=== PATIENT | male | born 1995 | race Native Hawaiian/Other Pacific Islander ===

== ENCOUNTER → 2020-09-08 16:53 | Outpatient (CLI) | payer OTHER, SELFPAY ==
--- NOTE | 2020-09-08 | DI.MRI.S_ITS ---
PROCEDURE: MR ANKLE LT WO CON INDICATIONS: pain in left ankle and joints of left foot TECHNIQUE: Noncontrast sagittal T1 spin echo and T2 fast spin echo with fat saturation, axial proton density fast spin echo and T2 fast spin echo with fat saturation, coronal T1 spin echo and T2 fast spin echo with fat saturation through the ankle/hindfoot. COMPARISON: None. FINDINGS: Image quality: Excellent. Bones and joints: Os navicularis is seen with pseudoarthrosis noted between anterior aspect of os navicularis and posterior medial portion of navicular bone. Mild edema within os navicularis is seen. No other area of abnormal marrow signal. No fracture or dislocation. No hindfoot coalitions. No osteochondral injuries of the talar dome. No pathologic joint effusions. Medial structures: The posterior tibialis appears thickened with small amount of fluid distending tendon sheath at the level of talonavicular joint with slightly attenuated appearance of the posterior tibialis tendon at the level of os navicularis. The flexor digitorum longus, and flexor hallucis longus tendons are intact. The posterior tibial neurovascular bundle appears normal within the tarsal tunnel, without extrinsic mass effect. The deep layer (anterior and posterior tibiotalar ligaments) and superficial layer (tibionavicular, tibiospring, and tibiocalcaneal ligaments) of the deltoid ligament appear normal. The spring ligament components (superomedial calcaneonavicular, medioplantar oblique calcaneonavicular, and inferoplantar longitudinal ligaments) are intact. Lateral structures: The anterior talofibular, calcaneofibular, and posterior talofibular ligaments appear intact. More superiorly, the anterior and posterior tibiofibular ligaments appear intact, as is the intermalleolar ligament. The tibiofibular syndesmosis is normal in width at 2 mm or less. The peroneus longus and brevis tendons demonstrate normal location and morphology. Adjacent bony peroneal tubercle and retrotrochlear prominence are normal in size. The sinus tarsi demonstrates normal fatty signal, without edema, fibrosis, or cyst formation. Visualized sinus tarsi components (cervical ligament, interosseous talocalcaneal ligament, roots of the inferior extensor retinaculum) appear normal. The calcaneonavicular and calcaneocuboid components of the bifurcate ligament appear intact. The dorsal calcaneocuboid ligament appears intact. Anterior structures: The tibialis anterior, extensor hallucis longus, and extensor digitorum longus tendons appear intact. The dorsal talonavicular ligament appears intact. Posterior and plantar structures: Achilles tendon is intact. Medial and lateral bands of the plantar fascia are of normal thickness. No abductor digiti quinti muscle atrophy to suggest Waters neuropathy. IMPRESSION: 1. Presence of os navicularis with pseudoarthrosis involving its articulation with medial navicular bone. No fracture or dislocation. No other area of abnormal marrow signal. 2. Low-grade tenosynovitis involving posterior tibialis tendon at the level of talonavicular joint. Suggestion of low-grade partial-thickness tear involving posterior tibialis tendon adjacent to the os navicularis. No full-thickness tendon rupture. 3. Rest of the ankle tendons and ligaments are grossly intact. Dictated by: Florentino Mcgee M.D. on 09/09/2020 at 8:40 Approved by: Florentino Mcgee M.D. on 09/09/2020 at 8:44
== END ==
PROVIDERS: Referring Provider Podiatrist; Visit Provider Podiatrist
DX: S93.492A Sprain of other ligament of left ankle, initial encounter (principal); M65.872 Other synovitis and tenosynovitis, left ankle and foot; M25.572 Pain in left ankle and joints of left foot; R26.2 Difficulty in walking, not elsewhere classified
CPT/HCPCS: 73721